=== PATIENT | male | born 1945 | race Caucasian/White ===

== ENCOUNTER 2017-11-11 07:05 | Day surgery (SDC) | payer MEDICARE ==
[~2017-11-11] VITALS: Ht 177.8 cm; Wt 77.3 kg
[~2017-11-11 07:05] MED LIST: ATEN25 PO; ATOR20 PO; Daily Multiple1 EACH; Hair, Skin & N1 EACH PO; LISHYD2012 PO; LISI20 PO; MUPI2TO; NAPR500 PO; Omeprazole20 M1 PO; VITAMIN; VITAMIN D32000 UNIT PO
== END 2017-11-11 09:29 | disposition home or self-care (01) ==
LOC: ORSCSDS 07:05
PROVIDERS: Surgery
PROC: 0DBL8ZX Excision of Transverse Colon, Via Natural or Artificial Opening Endoscopic, Diagnostic (ICD-10-PCS; principal; 2017-11-11 08:30)
DX: Z12.11 Encounter for screening for malignant neoplasm of colon (principal); D12.3 Benign neoplasm of transverse colon; Z86.010 Personal history of colon polyps; I10 Essential (primary) hypertension; Z87.891 Personal history of nicotine dependence; Z79.899 Other long term (current) drug therapy
CPT/HCPCS: 88305; J7120

== ENCOUNTER → 2019-08-09 | Outpatient (CLI) | payer MEDICARE | END | disposition home or self-care (01) | LOC: PLD 08:36 → LAB SHORT 08:36 | DX: L57.0 Actinic keratosis (principal) | CPT/HCPCS: 88305 ==